=== PATIENT | male | born 1975 | race African-American/Black ===

== ENCOUNTER 2021-03-18 11:21 | Emergency (ER) | payer OTHER ==
[~2021-03-18] VITALS: Ht 182.9 cm; Wt 77.0 kg
[2021-03-18 11:32] VITALS: BP 116/78
[2021-03-18] MEDS ORDERED: ACETAMINOPHEN 325MG TABLET PO ONE (11:45)
[2021-03-18] MEDS ORDERED: HYDR-4346 MT (12:37)
[2021-03-18] MEDS ORDERED: NAPR-1176 MT (12:37)
[2021-03-18] MEDS ORDERED: HYDROCODONE/ACETAMINOPHEN 5/325MG TABLET PO ONE (12:45)
== END 2021-03-18 14:20 | disposition home or self-care (01) ==
LOC: ER 11:21
DX: S42.032A Displaced fracture of lateral end of left clavicle, initial encounter for closed fracture (principal); Y04.0XXA Assault by unarmed brawl or fight, initial encounter; Y07.410 Brother, perpetrator of maltreatment and neglect; Y93.89 Activity, other specified; Y92.018 Other place in single-family (private) house as the place of occurrence of the external cause
CPT/HCPCS: 73030; 99283; A4565